=== PATIENT | male | born 2000 | race Caucasian/White ===

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

== ENCOUNTER 2020-01-19 11:34 | Emergency (ER) | payer BC, OTHER ==
[2020-01-19 12:06] VITALS: BP 118/65; PULSE 89; TEMP 98.7; BMI 24.5
--- NOTE | 2020-01-19 12:15 | PDOC ---
History of Present Illness - General Chief Complaint: Respiratory Stated Complaint: COUGH,FEVER Time Seen by Provider: 01/19/20 11:39 History Source: Patient, Family Exam Limitations: No Limitations - History of Present Illness Initial Comments: 19-year-old male with past medical history of asthma presented to the emergency department for sore throat, associated with sweats and chills since last night. 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 He reported the sore throat started first yesterday, and Boge night he got sweats and chills. He reported he took one Aleve, which improved his fever of 100.2 Fahrenheit. Your Bender than the fever increase, prompting him to take Tylenol, which improve his symptoms. Patient also admitted to diffuse bodyaches, intermittent chest tightness consistent with his prior asthma. Patient reported he has been using his nebulizer albuterol at home as needed, [facility], and Flovent which he does not use. Patient denied chest pain, shortness of breath, vomiting, lightheadedness. 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 ROS General: admitted to fever, chills, generalized weakness, body aches. HEENT: admitted to sore throat. denied rhinorrhea, ear pain. Cardiovascular: denied chest pain, palpitations, syncope, diaphoresis. Respiratory: denied shortness of breath, cough, sputum production, hemoptysis. Gastrointestinal: denied abdominal pain, nausea, vomiting, diarrhea, constipation, blood in stool. Genitourinary: denied dysuria, increased urinary frequency, hematuria, urinary incontinence, flank pain. Back: denied back pain. Musculoskeletal: denied joint pain, muscle pain, joint swelling. Neurological: denied headache, dizziness, numbness, tingling, weakness. Integumentary: denied rash, laceration, abrasion. Hematologic/Lymphatic: denied bruising or bleeding. PE Constitutional: Well-nourished, Well-developed, appearing stated age. HEENT: head is normocephalic, atraumatic. EOMI. PERRLA. no posterior pharyngeal erythema. no tonsillar swelling or exudates bilaterally. uvula midline. no peritonsillar swelling. no jaw tenderness or misalignment. Neck: supple. Full ROM. Cardiovascular: regular heart rhythm. Normal S1 and S2. no murmurs. no pericardial friction rub. Respiratory: clear to auscultation bilaterally. no crackles, rhonchi or wheezing. no stridor. good air movement bilaterally. Gastrointestinal: soft, flat, nontender. normal bowel sounds. no rebound, guarding, or masses. Extremities: peripheral pulses intact and equal. no lower extremity edema noted. Neurological: CN 2-12 grossly intact. moves all four extremities. Psych: awake, alert, oriented x3. follows commands. answers questions appropriately. Past History - Medical History Allergies/Adverse Reactions: Allergies Allergy/AdvReac Type Severity Reaction Status Date / Time sulfamethoxazole Allergy Rash Verified 09/14/17 20:14 [From Bactrim] trimethoprim [From Bactrim] Allergy Rash Verified 09/14/17 20:14 Home Medications: Ambulatory Orders Montelukast Na [Singulair] 10 mg PO DAILY 02/18/13 Fluticasone Propionate [Flovent Diskus] 50 mcg IH BID 10/04/16 Omeprazole 20 mg PO DAILY 07/17/17 Levalbuterol Tartrate [Xopenex Hfa] 15 gm IH ASDIR 09/14/17 Ondansetron [Zofran Odt -] 4 mg SL TID #9 od.tablet 01/19/20 Asthma: Yes COPD: No Seizures: Yes (2 FEBRILE A CHILD) - Immunization History Immunization Up to Date: Yes - Psycho-Social/Smoking History Smoking Status: No Smoking History: Never smoked Have you smoked in the past 12 months: No Number of Cigarettes Smoked Daily: 0 Information on smoking cessation initiated: No - Substance Abuse Hx (Audit-C & DAST Scrn) How often the patient has a drink containing alcohol: Never Score: In Men: 4 or > Positive; In Women: 3 or > Positive: 0 Screen Result (Pos requires Nsg. Audit-10AR): Negative *Physical Exam - Vital Signs Last Vital Signs Temp Pulse Resp BP Pulse Ox 98.7 F 89 20 118/65 98 01/19/20 11:34 01/19/20 11:34 01/19/20 11:34 01/19/20 11:34 01/19/20 11:34 Medical Decision Making - Medical Decision Making 19 year old male with above PMH presented to ED for sore throat, body aches, fever x1 day - concerned for COVID. Initial Vital Signs Temp Pulse Resp BP Pulse Ox 98.7 F 89 20 118/65 98 01/19/20 11:34 01/19/20 11:34 01/19/20 11:34 01/19/20 11:34 01/19/20 11:34 Afebrile - Aleve and Tylenol on board. No tachycardia. No tachypnea. No hypotension. No hypoxia on room air. COVID swab performed, pt to be called with result. Pt and parents given COVID precautions, quarantine guidelines, symptomatic treatment. Family reported they have a nebulizer, and ample albuterol solution at home, declined prescription. Shared decision making on steroids made with pt and parents. Pt reported he does not feel at this time his asthma is bothering him, and would like to not have steroids at this time. Family encouraged to call or return if they change their mind. Family reported understanding of COVD precuations, quarantine guielines, symptomatic treatment. Pt and family agree with plan for care. Pt given work note for 2 weeks, which he will need in order to be paid for sick leave from the grocery store. Pt and family advised to quarantine even if swab is negative if patient is still symptomatic. Discharge - Discharge Information Problems reviewed: Yes Clinical Impression/Diagnosis: Sore throat, Viral syndrome, Body aches, Fever, Suspected COVID-19 virus infection Condition: Guarded Disposition: HOME - Admission No - Additional Discharge Information Prescriptions: Ondansetron [Zofran Odt -] 4 mg SL TID #9 od.tablet - Follow up/Referral - Patient Discharge Instructions Patient Printed Discharge Instructions: DI for Asthma -- Adult, DI for Viral Syndrome, [facility]-Coronavirus Instructions, [facility] COVID-19 Isolation Protocol Additional Instructions: Consider yourself to be positive for COVID at this point, and consider everyone who lives in your home to be positive as well. You will all need to quarantine for two weeks at minimum. You were tested for COVID via nasal swab today. That result will come back in 1 to 2 days. Even if that result is negative, I would like for you to quarantine until seven days of no fever has occurred. There have been some false negatives, and I would prefer for you to be safe. You cannot leave the home for the next two weeks, or you risk spreading it to other people. Please have your groceries delivered to your home if possible, have friends and family drop things off at the door. Do not allow anyone who does not live in the home inside of your home. Even if people in the home have no symptoms, they can still transmit the disease. Wear mask at all other times if you must be around others. You can buy a pulse oximeter from at a pharmacy. Use this whenever you feel short of breath, any reading less than 94% is abnormal. 94% and above is normal oxygenation. Make sure you are not using this device over a glove, or cold finger, as this will give a false a little level. For your body aches and fever, take Tylenol 1000 mg every eight hours first. If a fever breaks through, you can then add ibuprofen or Aleve. Take us advised on label. These are not the same medications and can be used safely together. If you feel short of breath, or your asthma is acting up, please administer a nebulizer albuterol treatment. You could do this every 4 to 6 hours as needed. Please call if you need a refill of your medications. Return to the emergency department for, shortness of breath, oxygen level less than 94%, just pain, lightheadedness, intractable vomiting, fever not able to be lower to below 105 Fahrenheit with ibuprofen and Tylenol, or any other new, worsening, or aggravating symptoms. I have prescribed you a nausea medication, Zofran, please place this tablet under the tongue to dissolve as needed for nausea, vomiting. This is in case you develop nausea and vomiting later, and will prevent you from having to leave the home again. - Post Discharge Activity Work/Back to School Note: Back to Work
--- NOTE | 2020-01-19 12:21 | PDOC ---
Attending Attestation - Resident Resident Name: Zuleika Finley - ED Attending Attestation I have performed the following: I have examined & evaluated the patient, The case was reviewed & discussed with the resident, I agree w/resident's findings & plan, Exceptions are as noted - HPI HPI: 01/19/20 12:21 19 M with h/o asthma presenting with fevers, sore throat, cough. 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 Denies any CP/SOB at this time. Has been using albuterol at home. - Physicial Exam PE: 01/19/20 12:21 "GENERAL: Awake, alert, and fully oriented, in no acute distress. HEAD: No signs of trauma EYES: PERRLA, EOMI, sclera anicteric, conjunctiva clear ENT: Auricles normal inspection, hearing grossly normal, nares patent, oropharynx clear without exudates. Moist mucosa NECK: Nontender, no stepoffs, Normal ROM, supple, no lymphadenopathy, JVD, or masses LUNGS: Breath sounds equal, clear to auscultation bilaterally. No wheezes, and no crackles HEART: Regular rate and rhythm, normal S1 and S2, no murmurs, rubs or gallops ABDOMEN: Soft, nontender, normoactive bowel sounds. No guarding, no rebound. No masses EXTREMITIES: Normal range of motion, no edema. No clubbing or cyanosis. No cords, erythema, or tenderness NEUROLOGICAL: Cranial nerves II through XII intact. 5/5 strength and sensation in all extremities, Normal speech, normal gait, normal cerebellar function SKIN: Warm, Dry, normal turgor, no rashes or lesions noted. - Medical Decision Making 01/19/20 12:21 19 M with URI-like symptoms. - COVID swab - Supportive care Pt is well appearing, with normal vitals. Clinically stable for DC at this time. I discussed the physical exam findings, ancillary test results and final diagnoses with the patient. I answered all of the patient's questions. The patient was satisfied with the care received and felt comfortable with the discharge plan and treatment plan. The patient agrees to follow up with the primary care physician within 24-72 hours. Discharge - Discharge Information Problems reviewed: Yes Clinical Impression/Diagnosis: Sore throat, Viral syndrome, Body aches, Fever, Suspected COVID-19 virus infection Condition: Guarded Disposition: HOME - Additional Discharge Information Prescriptions: Ondansetron [Zofran Odt -] 4 mg SL TID #9 od.tablet - Follow up/Referral - Patient Discharge Instructions Patient Printed Discharge Instructions: DI for Asthma -- Adult, DI for Viral Syndrome, [facility]Coronavirus Instructions, [facility] COVID-19 Isolation Protocol Additional Instructions: Consider yourself to be positive for COVID at this point, and consider everyone who lives in your home to be positive as well. You will all need to quarantine for two weeks at minimum. You were tested for COVID via nasal swab today. That result will come back in 1 to 2 days. Even if that result is negative, I would like for you to quarantine until seven days of no fever has occurred. There have been some false negatives, and I would prefer for you to be safe. You cannot leave the home for the next two weeks, or you risk spreading it to other people. Please have your groceries delivered to your home if possible, have friends and family drop things off at the door. Do not allow anyone who does not live in the home inside of your home. Even if people in the home have no symptoms, they can still transmit the disease. Wear mask at all other times if you must be around others. You can buy a pulse oximeter from at a pharmacy. Use this whenever you feel short of breath, any reading less than 94% is abnormal. 94% and above is normal oxygenation. Make sure you are not using this device over a glove, or cold finger, as this will give a false a little level. For your body aches and fever, take Tylenol 1000 mg every eight hours first. If a fever breaks through, you can then add ibuprofen or Aleve. Take us advised on label. These are not the same medications and can be used safely together. If you feel short of breath, or your asthma is acting up, please administer a nebulizer albuterol treatment. You could do this every 4 to 6 hours as needed. Please call if you need a refill of your medications. Return to the emergency department for, shortness of breath, oxygen level less than 94%, just pain, lightheadedness, intractable vomiting, fever not able to be lower to below 105 Fahrenheit with ibuprofen and Tylenol, or any other new, worsening, or aggravating symptoms. I have prescribed you a nausea medication, Zofran, please place this tablet under the tongue to dissolve as needed for nausea, vomiting. This is in case you develop nausea and vomiting later, and will prevent you from having to leave the home again. - Post Discharge Activity Work/Back to School Note: Back to Work
== END 2020-01-19 12:28 | disposition home or self-care (01) ==
LOC: FER 11:34
DX: J02.9 Acute pharyngitis, unspecified (principal); R50.9 Fever, unspecified
CPT/HCPCS: 99282-25; U0003